=== PATIENT | male | born 1955 | race Caucasian/White ===

== ENCOUNTER 2023-10-17 07:53 | Outpatient (AMB) | payer BC, SELFPAY ==
--- NOTE | 2023-10-17 08:03 | MHC.OFFVIS ---
Vital Signs 10/17/23 08:07 Height 5 ft 8 in Weight 195 lb 8 oz BMI 29.7 BP 136/70 Blood Pressure Location Rt brachial Position Sitting Respiration 16 Pulse 71 Pulse Source Pulse Oximeter Pulse Oximetry (%) 98 Oxygen Delivery Method Room Air Intake Visit Reasons: ENP:Trouble w/work recall/waking straight - Conf Intake Note: Pt presents for new pt consultation for evaluation of gait disturbance and cognitive impairment. 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 It started about 2 years ago and for past few months - he has improved significantly. He denies headaches, denies double vision , denies confusion. Denies falls. He denies neck or back pain He has h/o depression- not on any medications. He has intremittent sleep issues. He sleeps 4-5 hrs. He has snoring, frequent arousals and excessive daytime fatigue No recent h/o head injury. 2-3 years ago he sprayed chemicals in his lawn and he thinks it started after that. He also says he is under a lot of stress in the apst 3 years . [facility] Medical History (Updated 10/17/23 @ 15:02 by Jia Al MD) Cognitive change Panic disorder Lactose intolerance Anxiety Depression Obesity Hypersomnia Snoring Insomnia Surgical History (Updated 10/17/23 @ 08:06 by Blaire Painter CMA) H/O colonoscopy Family History (Updated 10/17/23 @ 08:07 by Blaire Painter CMA) Father Cataract Social History (Updated 10/17/23 @ 08:07 by Blaire Painter CMA) Household Members: Family Housing: House Alcohol intake: never Patient Tobacco Use Status: Never used Tobacco Review of Systems ENT Reports Normal hearing present Neuro Reports Normal hearing present Physical Exam Vital Signs: Last Vital Signs Pulse 71 10/17/23 08:07 Resp 16 10/17/23 08:07 BP 136/70 10/17/23 08:07 Pulse Ox 98 10/17/23 08:07 Oxygen Delivery Method Room Air 10/17/23 08:07 BMI result Body Mass Index 29.7 Const General: cooperative, healthy appearing, comfortable and anxious Nutritional Appearance: not overweight Orientation/consciousness: patient oriented x3 Eyes Pupils: Equal, round and reactive pupils present Neuro General: patient oriented x3, tone normal, moves all extremities and no focal motor deficits Cranial nerves: Yes Facial sensation intact/muscles of mastication intact, Yes Equal, round and reactive pupils present, Yes Bilaterally intact EOM present, Yes Nystagmus not present, Yes Normal facial strength present, Yes Midline tongue present, Yes Symmetric palate elevation present, Yes Normal hearing present and Yes Ability to bilaterally elevate shoulders present Cognition (Neuro): normal cognition Gait exam (Neuro): Normal gait present Motor exam (neuro): 5/5 motor strength present throughout and Normal motor muscle tone present throughout Orientation What is the (year) (season) (date) (day) (month)?: year, season, date, day and month Where are we (state) (county) (town or city) (hospital) (floor)?: state, county, town or city, hospital/clinic and floor Registration Name of 3 unrelated objects clearly and slowly, then ask patient to repeat all 3 of them. (1st repeat determines score. Make sure they can repeat all three): object 1, object 2 and object 3 Attention & Calculation (CHOOSE ONE) Ask pt to begin with 100 & count backward by 7. Stop after 5 repeats. If pt cannot ask them to spell the word WORLD backward.: 93, 86, 79, 72 and 65 Recall Ask patient to repeat the 3 items from question #3.: object 1, object 2 and object 3 Language Show patient a wristwatch & ask what it is. Repeat for pencil.: watch and pencil Ask the patient to repeat the phrase 'No ifs, ands, or buts' after you.: correct Ask the patient to 'take a piece of paper with their right hand' 'fold paper in half' 'place paper on floor': take paper in right hand, fold paper in half and place paper on floor Print the sentence 'CLOSE YOUR EYES' on a piece. If patient actually closes eyes then score.: followed written direction Give patient a blank piece of paper & ask to write a sentence. Score if it contains a noun & verb.: sentence contains subject and verb Ask patient to copy figure of intersecting pentagons exactly. Score if all 10 angles & 2 intersects are included.: all 10 angles present & 2 are intersected Score Score: 30 Assessment & Plan Assessment & Plan (1) Cognitive change: Comment: did well on MMSE - ? relate dto poorly controlled mood ? sleep Code(s): R41.89 - Other symptoms and signs involving cognitive functions and awareness Category: Medical (2) Depression: Code(s): F32.A - Depression, unspecified Category: Medical (3) Hypersomnia: Code(s): G47.10 - Hypersomnia, unspecified Category: Medical (4) Snoring: Code(s): R06.83 - Snoring Category: Medical Plan I will evaluate him with home sleep test to r/o sleep apnea I will trial him on mirtazepine 7.5mg qhs for mood and sleep labs to r/o reversible causes Reviewed MRI brain Orders: Orders RT home sleep study Today G47.10 - Hypersomnia, unspecified, R06.83 - Snoring TSH reflex Free T4 Today R41.89 - Other symptoms and signs involving cognitive functions and awareness Complete Blood Count Auto Diff Today R41.89 - Other symptoms and signs involving cognitive functions and awareness Erythrocyte Sedimentation Rate Today R41.89 - Other symptoms and signs involving cognitive functions and awareness Vitamin B12 and Folate Today R41.89 - Other symptoms and signs involving cognitive functions and awareness Comprehensive Met. Panel Today R41.89 - Other symptoms and signs involving cognitive functions and awareness Medications: New mirtazapine 7.5 mg PO BEDTIME 30 tabs 6RF Coding Level of Care Code New Pt Level 4 (27565) Diagnoses Cognitive change R41.89 Depression F32.A Hypersomnia G47.10 Snoring R06.83
[2023-10-17 08:07] VITALS: BP 136/70; PULSE 71; RESP 16; O2SAT 98; BMI 29.7
== END 2023-10-17 08:56 | disposition home or self-care (01) ==
PROVIDERS: PCP Family Medicine; Visit Provider Psychiatry & Neurology Neurology
DX: R41.89 Other symptoms and signs involving cognitive functions and awareness (principal); F32.A Depression, unspecified; G47.10 Hypersomnia, unspecified; R06.83 Snoring
CPT/HCPCS: 99204

== ENCOUNTER → 2023-10-17 07:53 | Outpatient (BNVA) | payer BC, SELFPAY | PROVIDERS: PCP Family Medicine; Visit Provider Psychiatry & Neurology Neurology ==